=== PATIENT | male | born 1945 | race Caucasian/White ===

== ENCOUNTER 2016-10-22 20:16 | Emergency (ER) | payer MEDICARE ==
[~2016-10-22 20:16] MED LIST: ANDROGEL1%; ANTIVERT 25MG25 MG PO; ASPIRIN 81M81 MG/TA2 PO; FISH OIL1000 MG; GLUCOSAMINE & C1 CA1; LEVAQUIN 750MG750 M1 PO; LOPRESSOR 225 MG/TAB PO; MULTIPLE VITAMI1 CAP PO; NAPROSYN500 MG; NEURONTIN100 MG/CAP PO; OSTEO-BI-FLEX 21 TAB; TOPROL XL 25MG25 MG PO; VITAMIN B COMPL1 TA1; ZOCOR 40MG40 MG PO; ZOCOR5 MG PO
[2016-10-22 20:18] VITALS: TEMP 97.9
[2016-10-22 20:50] LABS: BASO % 0.4 % (0.0-2.0); EOS # 0.3 (0.0-0.7); EOS % 3.8 % (0-4.0); GRAN # 4.3 (1.4-6.5); GRAN % 50.8 % (42.2-75.2); HEMATOCRIT 44.6 % (42.0-52.0); LYMPH % 35.2 % (20.0-51.0); MEAN CELL VOLUME 91 fl (80.0-100.0); MEAN CORPUSCULAR HEMOGLOBIN 33 pg (27.0-31.0); MEAN CORPUSCULAR HGB CONC 36 g/dl (33.0-37.0); MEAN PLATELET VOLUME 10.6 fl (7.4-10.4); MONO # 0.8 (0.1-0.6); MONO % 9.4 % (1.7-9.3); PLATELET COUNT 237 K/mm3 (130-400); RED BLOOD COUNT 4.93 M/mm3 (4.20-5.60); WHITE BLOOD COUNT 8.4 K/mm3 (4.8-10.8)
[2016-10-22 21:01] LABS: ADJUSTED CALCIUM 8.7 mg/dL (8.4-10.2); ALANINE AMINOTRANSFERASE 45 U/L (21-72); ALBUMIN 4.6 gm/dL (3.5-5.0); ALKALINE PHOSPHATASE 60 U/L (50-136); ANION GAP 12 mmol/L (7-16); BILIRUBIN,TOTAL 0.9 mg/dL (0.0-1.0); BLOOD UREA NITROGEN 21 mg/dL (9-20); CALCIUM 9.2 mg/dL (8.4-10.2); CARBON DIOXIDE 26 mmol/L (22-30); CHLORIDE 102 mmol/L (98-107); CREATININE, serum 1.04 mg/dL (0.66-1.25); GLUCOSE 145 mg/dL (74-106); POTASSIUM 3.7 mmol/L (3.4-5.0); SODIUM 141 mmol/L (137-145); TOTAL PROTEIN 7.7 gm/dL (6.4-8.2)
[2016-10-22 21:14] LABS: TROPONIN-I < 0.012 ng/mL (0.000-0.034)
[2016-10-22 22:58] VITALS: BP 110/76; PULSE 74
== END 2016-10-22 23:03 | disposition home or self-care (01) ==
LOC: COL.ER 20:16
PROVIDERS: Emergency Medicine
DX: I47.1 Supraventricular tachycardia (principal); E78.5 Hyperlipidemia, unspecified; Z87.891 Personal history of nicotine dependence

== ENCOUNTER 2017-04-24 09:18 | Outpatient (RCR) | payer OTHER | END 2017-06-14 10:32 | disposition home or self-care (01) | LOC: WSOH 09:18 | DX: M25.562 Pain in left knee (principal) ==

== ENCOUNTER 2017-10-29 11:41 | Emergency (ER) | payer MEDICARE ==
[~2017-10-29] VITALS: Ht 182.9 cm; Wt 86.4 kg
[2017-10-29 11:57] VITALS: BP 135/77; TEMP 98.6
[2017-10-29] MEDS ORDERED: GLUCOSAMIN 500 (14:31)
[2017-10-29 15:57] VITALS: PULSE 67
== END 2017-10-29 15:59 | disposition home or self-care (01) ==
LOC: COL.ER 11:41
DX: S09.90XA Unspecified injury of head, initial encounter (principal); S01.01XA Laceration without foreign body of scalp, initial encounter; Z23 Encounter for immunization; Z79.82 Long term (current) use of aspirin; Z79.52 Long term (current) use of systemic steroids; W10.9XXA Fall (on) (from) unspecified stairs and steps, initial encounter

== ENCOUNTER 2017-11-05 12:12 | Emergency (ER) | payer MEDICARE ==
[~2017-11-05 12:12] MED LIST changes: +GLUCOSAMIN 500
[2017-11-05 12:20] VITALS: BP 125/76; PULSE 66; TEMP 97.9
== END 2017-11-05 12:28 | disposition home or self-care (01) ==
LOC: COL.ER 12:12
DX: S01.01XD Laceration without foreign body of scalp, subsequent encounter (principal); X58.XXXD Exposure to other specified factors, subsequent encounter

== ENCOUNTER 2023-09-02 15:27 | Emergency (ER) | payer MEDICARE ==
[~2023-09-02] VITALS: Ht 180.3 cm; Wt 84.1 kg
[2023-09-02 15:32] VITALS: TEMP 97.7
[2023-09-02 17:02] LABS: BASO % 0.5 % (0.0-2.0); EOS # 0.2 K/mm3 (0.0-0.7); EOS % 2.5 % (0.0-4.0); GRAN # 5.8 K/mm3 (1.4-6.5); GRAN % 72.7 % (42.2-75.2); HEMATOCRIT 35.2 % (42.0-52.0); LYMPH # 1.1 K/mm3 (1.2-3.4); LYMPH % 13.3 % (20.0-51.0); MEAN CELL VOLUME 93 fl (80.0-100.0); MEAN CORPUSCULAR HEMOGLOBIN 29 pg (27-31); MEAN CORPUSCULAR HGB CONC 31 g/dl (33.0-37.0); MEAN PLATELET VOLUME 9.7 fl (7.4-10.4); MONO # 0.8 K/mm3 (0.1-0.6); MONO % 10.6 % (1.7-9.3); PLATELET COUNT 234 K/mm3 (130-400); RED BLOOD COUNT 3.79 M/mm3 (4.20-5.60); REDCELL DISTRIBUTION WIDTH-CV 20.2 % (11.5-14.5)
[2023-09-02 17:07] LABS: PH 5.5 (5.0-8.5); URINE APPEARANCE CLEAR (CLEAR/HAZY); URINE BLOOD 3+ (NEGATIVE); URINE COLOR Dark Yellow (YELLOW); URINE GLUCOSE NEGATIVE (NEGATIVE); URINE KETONE TRACE (NEGATIVE); URINE NITRATE NEGATIVE (NEGATIVE); URINE PROTEIN(semi-quant) 1+ (NEGATIVE); URINE UROBILINOGEN 0.2 E.U/dL (0.2-1.0)
[2023-09-02 17:16] LABS: COLLECTION METHOD CLEAN CATCH
[2023-09-02 17:22] LABS: BILIRUBIN,TOTAL 0.3 mg/dL (0.2-1.2); CALCIUM 8.9 mg/dL (8.4-10.2); CREATININE, serum 1.1 mg/dL (0.72-1.25); POTASSIUM 4.1 mEq/L (3.5-4.5); TOTAL PROTEIN 7.6 g/dl (6.2-8.1)
[2023-09-02] MEDS ORDERED: CEFTIN500 MG PO (17:49)
[2023-09-02] MEDS ORDERED: cefTRIAXone 1 G in Water For Injection,Sterile 10 ML IV ONE (18:00)
[2023-09-02 18:10] VITALS: BP 133/90; PULSE 66
== END 2023-09-02 18:15 | disposition home or self-care (01) ==
LOC: COL.ER 15:27
PROVIDERS: Physician Assistant
DX: T83.511A Infection and inflammatory reaction due to indwelling urethral catheter, initial encounter (principal)
CPT/HCPCS: J0696

== ENCOUNTER 2023-09-04 18:11 | Emergency (ER) | payer MEDICARE ==
[~2023-09-04] VITALS: Ht 180.3 cm; Wt 84.1 kg
[~2023-09-04 18:11] MED LIST changes: +CEFTIN500 MG PO
[2023-09-04 19:06] VITALS: BP 143/80; PULSE 80; TEMP 97.7
== END 2023-09-04 19:07 | disposition home or self-care (01) ==
LOC: COL.ER 18:11
DX: T83.091A Other mechanical complication of indwelling urethral catheter, initial encounter (principal)

== ENCOUNTER → 2023-09-26 | Outpatient (CLI) | payer MEDICARE ==
[2023-09-26] VITALS (11 sets, daily range): BP systolic 130–143; BP diastolic 73–101; PULSE 60–72; TEMP 97.7
[~2023-09-26] VITALS: Ht 180.3 cm; Wt 80.7 kg
[~2023-09-26] MED LIST changes: -ANDROGEL1%; +ANDROGEL1% TOP; +LIPITOR 40MG TA40 MG PO; +Midazolam 2 MG/2 ML VIAL IV SCH; -NAPROSYN500 MG; +NAPROSYN500 MG PO; +VITAMIN B COMPL1 T16 PO; -VITAMIN B COMPL1 TA1; +XALATAN EYE DROPS OU; +fentaNYL 50 MCG/ML 2 ML VIAL IV SCH
--- NOTE | 2023-09-26 10:50 | NUR ---
Pt to ct per wheelchair. Pt placed in prone position on ct table. Monitors and O2 applied.
--- NOTE | 2023-09-26 10:58 | NUR ---
Dr Mitchell into room and talks with pt. Pt verbalized understanding.
--- NOTE | 2023-09-26 11:10 | NUR ---
Specimens obtained and placed in formalin by Dr Mitchell. Specimen labeled.
--- NOTE | 2023-09-26 11:55 | NUR ---
Discharge instructions gone over with pt. Pt verbalized understanding of instructions. Copy given to pt.
== END ==
LOC: COL.RAD 08:52
DX: R91.8 Other nonspecific abnormal finding of lung field (principal); E27.9 Disorder of adrenal gland, unspecified
CPT/HCPCS: J2250; J3010

== ENCOUNTER 2023-11-15 17:59 | Emergency (ER) | payer MEDICARE ==
[~2023-11-15] VITALS: Ht 180.3 cm; Wt 81.8 kg
[~2023-11-15 17:59] MED LIST changes: -Midazolam 2 MG/2 ML VIAL IV SCH; -fentaNYL 50 MCG/ML 2 ML VIAL IV SCH
[2023-11-15 18:05] VITALS: TEMP 97.5
[2023-11-15 22:03] VITALS: BP 148/80; PULSE 64
== END 2023-11-15 22:03 | disposition home or self-care (01) ==
LOC: COL.ER 17:59
DX: T83.098A Other mechanical complication of other urinary catheter, initial encounter (principal)
CPT/HCPCS: 31860; A4314

== ENCOUNTER 2023-11-16 13:18 | Emergency (ER) | payer MEDICARE ==
[~2023-11-16] VITALS: Ht 180.3 cm; Wt 83.6 kg
[2023-11-16 13:25] VITALS: TEMP 97.9
[2023-11-16 14:17] VITALS: BP 140/78; PULSE 68
== END 2023-11-16 14:17 | disposition home or self-care (01) ==
LOC: COL.ER 13:18
DX: T83.098A Other mechanical complication of other urinary catheter, initial encounter (principal)

== ENCOUNTER 2023-11-17 15:33 | Emergency (ER) | payer MEDICARE ==
[~2023-11-17] VITALS: Ht 180.3 cm; Wt 84.1 kg
[2023-11-17 15:37] VITALS: TEMP 98
[2023-11-17 16:44] LABS: MEAN CELL VOLUME 88 fl (80.0-100.0); MEAN CORPUSCULAR HGB CONC 31 g/dl (33.0-37.0); MEAN PLATELET VOLUME 9.2 fl (7.4-10.4); PLATELET COUNT 205 K/mm3 (130-400); RED BLOOD COUNT 3.23 M/mm3 (4.20-5.60); REDCELL DISTRIBUTION WIDTH-CV 17.2 % (11.5-14.5)
[2023-11-17 16:47] LABS: HEMATOCRIT 28.3 % (42.0-52.0); HEMOGLOBIN 8.7 g/dl (13.5-18.0); MEAN CORPUSCULAR HEMOGLOBIN 27 pg (27-31)
[2023-11-17 17:01] LABS: ALBUMIN 3.1 g/dL (3.4-4.8); BILIRUBIN,TOTAL 0.5 mg/dL (0.2-1.2); CREATININE, serum 0.84 mg/dL (0.72-1.25); POTASSIUM 3.7 mEq/L (3.5-4.5); TOTAL PROTEIN 6.1 g/dl (6.2-8.1)
[2023-11-17 17:13] LABS: ANISOCYTOSIS 1+; HYPOCHROMIA 1+; LYMPHOCYTE 35 % (20.0-51.0); NEUTROPHILS 53 % (42.0-75.2); PLATELET ESTIMATE NORMAL (NORMAL)
[2023-11-17 17:22] LABS: COLLECTION METHOD CATHETER
[2023-11-17 17:34] LABS: PH 6.5 (5.0-8.5); URINE APPEARANCE CLOUDY (CLEAR/HAZY); URINE BLOOD 3+ (NEGATIVE); URINE COLOR Dark Yellow (YELLOW); URINE GLUCOSE NEGATIVE (NEGATIVE); URINE KETONE NEGATIVE (NEGATIVE); URINE NITRATE NEGATIVE (NEGATIVE); URINE PROTEIN(semi-quant) 2+ (NEGATIVE)
[2023-11-17 17:57] LABS: SQUAMOUS EPITHELIAL 0-2 /hpf (0-10); URINE RBC >50 /hpf (0-2); URINE WBC >50 /hpf (0-2)
[2023-11-17 19:24] VITALS: BP 120/60; PULSE 76
== END 2023-11-17 19:24 | disposition home or self-care (01) ==
LOC: COL.ER 15:33
PROVIDERS: Family Medicine
DX: R41.82 Altered mental status, unspecified (principal); C43.9 Malignant melanoma of skin, unspecified; C79.31 Secondary malignant neoplasm of brain; Z85.118 Personal history of other malignant neoplasm of bronchus and lung; Z85.858 Personal history of malignant neoplasm of other endocrine glands
CPT/HCPCS: 31860; A4314

== ENCOUNTER 2023-11-21 03:15 | Emergency (ER) | payer MEDICARE ==
[~2023-11-21] VITALS: Ht 180.3 cm; Wt 84.1 kg
[2023-11-21 03:20] VITALS: BP 110/62; PULSE 94; TEMP 98.1
[2023-11-21 03:49] LABS: COLLECTION METHOD CATHETER
[2023-11-21 03:58] LABS: URINE APPEARANCE CLEAR (CLEAR/HAZY); URINE BLOOD 1+ (NEGATIVE); URINE COLOR YELLOW (YELLOW); URINE GLUCOSE NEGATIVE (NEGATIVE); URINE KETONE NEGATIVE (NEGATIVE); URINE NITRATE POSITIVE (NEGATIVE); URINE PROTEIN(semi-quant) 1+ (NEGATIVE); URINE UROBILINOGEN 0.2 E.U/dL (0.2-1.0)
[2023-11-21] MEDS ORDERED: BACTRIM DS 8001 TAB PO (04:05)
[2023-11-21] MEDS ORDERED: Sulfamethoxazole/Trimethoprim 800-160 MG TAB PO ONE (04:15)
== END 2023-11-21 04:46 | disposition home or self-care (01) ==
LOC: COL.ER 03:15
PROVIDERS: Emergency Medicine
DX: N39.0 Urinary tract infection, site not specified (principal); T83.091A Other mechanical complication of indwelling urethral catheter, initial encounter; Z88.1 Allergy status to other antibiotic agents

== ENCOUNTER 2023-11-30 13:44 | Emergency (ER) | payer MEDICARE ==
[~2023-11-30] VITALS: Ht 180.3 cm; Wt 83.6 kg
[~2023-11-30 13:44] MED LIST changes: +BACTRIM DS 8001 TAB PO
[2023-11-30 14:30] VITALS: TEMP 97.9
[2023-11-30 16:03] VITALS: BP 133/73; PULSE 70
== END 2023-11-30 15:55 | disposition home or self-care (01) ==
LOC: COL.ER 13:44
DX: T83.091A Other mechanical complication of indwelling urethral catheter, initial encounter (principal); Z85.841 Personal history of malignant neoplasm of brain; Z87.440 Personal history of urinary (tract) infections

== ENCOUNTER 2023-12-11 05:42 | Day surgery (SDC) | payer MEDICARE ==
[~2023-12-11] VITALS: Ht 180.3 cm; Wt 81.0 kg
[2023-12-11] VITALS (13 sets, daily range): BP systolic 102–130; BP diastolic 57–79; PULSE 52–76; TEMP 96.1–97.9
[~2023-12-11 05:42] MED LIST changes: +LR 1,000 ML IV SCH
[2023-12-11] MEDS ORDERED: TESTOST (06:21)
[2023-12-11 06:37] LABS: BASO # 0.1 K/mm3 (0.0-0.2); BASO % 1.1 % (0.0-2.0); EOS # 0.3 K/mm3 (0.0-0.7); EOS % 7.5 % (0.0-4.0); GRAN # 2.2 K/mm3 (1.4-6.5); GRAN % 48.8 % (42.2-75.2); HEMOGLOBIN 10.6 g/dl (13.5-18.0); LYMPH # 1.3 K/mm3 (1.2-3.4); LYMPH % 29.5 % (20.0-51.0); MEAN CELL VOLUME 82 fl (80.0-100.0); MEAN CORPUSCULAR HEMOGLOBIN 25 pg (27-31); MEAN CORPUSCULAR HGB CONC 31 g/dl (33.0-37.0); MEAN PLATELET VOLUME 8.4 fl (7.4-10.4); MONO # 0.6 K/mm3 (0.1-0.6); MONO % 12.7 % (1.7-9.3); PLATELET COUNT 188 K/mm3 (130-400); REDCELL DISTRIBUTION WIDTH-CV 16.7 % (11.5-14.5)
[2023-12-11 06:41] LABS: HEMATOCRIT 34.6 % (42.0-52.0)
[2023-12-11 06:54] LABS: CALCIUM 9.4 mg/dL (8.4-10.2); CREATININE, serum 0.85 mg/dL (0.72-1.25); POTASSIUM 4.2 mEq/L (3.5-4.5)
[2023-12-11] MEDS ORDERED: dexAMETHasone 10 MG/ML VIAL ONE (07:01)
[2023-12-11] MEDS ORDERED: Lidocaine PF 2% (20 MG/ML) 5 ML VIAL ONE (07:01)
[2023-12-11] MEDS ORDERED: Ondansetron 4 MG/2 ML VIAL ONE (07:01)
[2023-12-11] MEDS ORDERED: TYLENOL 325MG325 MG PO (07:03)
[2023-12-11] MEDS ORDERED: COLACE 100100 MG/CAP PO (07:05)
[2023-12-11] MEDS ORDERED: IRON TABLETS325 MG PO (07:06)
[2023-12-11] MEDS ORDERED: KEPPRA 500MG500 MG PO (07:09)
[2023-12-11] MEDS ORDERED: MAG-OX 400400 MG/TAB PO (07:10)
[2023-12-11] MEDS ORDERED: MELATONIN5 M1 PO (07:11)
[2023-12-11] MEDS ORDERED: fentaNYL 50 MCG/ML 2 ML VIAL ONE (07:25)
[2023-12-11] MEDS ORDERED: Midazolam 2 MG/2 ML VIAL ONE (07:28)
--- NOTE | 2023-12-11 07:39 | NUR ---
PATIENT ADMITTED TO ROOM 8 WITH USE OF WHEELED WALKER. VOICES UNDERSTANDING OF SURGERY AND CONSENT SIGNED. 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 DAUGHTER WITH THE PATIENT.
[2023-12-11] MEDS ORDERED: 1/2 NS & 20 mEq KCl 1,000 ML IV SCH (08:00)
[2023-12-11] MEDS ORDERED: Hyoscyamine 0.125 MG Sublingual TAB SL PRN (08:00)
[2023-12-11] MEDS ORDERED: Morphine 4 MG/ML VIAL IV PRN (08:00)
[2023-12-11] MEDS ORDERED: Magnes Hydrox (MOM) 80 MG/ML 30 ML CUP PO PRN (08:00)
[2023-12-11] MEDS ORDERED: Ondansetron 4 MG/2 ML VIAL IV PRN ×2 (08:00→09:00)
[2023-12-11] MEDS ORDERED: NS Irrig Soln 3000 ML SOLN IR PRN (08:00)
[2023-12-11] MEDS ORDERED: Acetaminophen 325 MG TAB PO PRN (08:00)
[2023-12-11] MEDS ORDERED: hydrALAZINE 20 MG/ML 1 ML VIAL IV PRN (09:00)
[2023-12-11] MEDS ORDERED: Docusate Sodium 100 MG CAP PO SCH ×2 (09:00)
[2023-12-11] MEDS ORDERED: HYDROmorphone 1 MG/1 ML SYRINGE [PACU/SDC ONLY] IV PRN (09:00)
[2023-12-11] MEDS ORDERED: fentaNYL 50 MCG/ML 1 ML SYRINGE/VIAL [PACU/SDC ONLY] IV PRN (09:00)
--- NOTE | 2023-12-11 10:15 | NUR ---
Pt recently arrived to the floor from [facility]. He is drowsy, but does wake easily when spoken to. Unable to get a temperature at this time, daughter reports people always have a hard time getting a temperature on him and baseline is around 97 degrees. Pt has several blankets on him, does feel a little cool to touch, daughter states that he feels normal to her. Sol catheter to dependent drainage with CBI at slow rate. Output is pink tinged, no clots seen. IVF infusing to left wrist. Oriented daughter to the room and educated on plan of care. Letting pt rest at this time
[2023-12-11] MEDS ORDERED: levETIRAcetam 500 MG TAB PO SCH (10:30)
--- NOTE | 2023-12-11 11:30 | NUR ---
Pt continues to do okay. No complaints of pain at this time. Discussed him reporting if he ever gets the urge to void. CBI continues to run at slow rate, output remains pink tinged, no clots seen. Pt denies any needs at this time
--- NOTE | 2023-12-11 15:54 | NUR ---
Pt doing well, no complaints of pain. He did state occasionally he has the feeling as if he needs to void, but that it goes away. Explained bladder spasms to him. I did assist pt to standing at the side of the bed. Pt did well with only slight complaints of discomfort. Pt tolering liquids and he did have some crackers and peanut butter. Pt advanced to general diet and he stated he understands how to order. Pts daughter planning on leaving soon, call light within reach
[2023-12-11] MEDS ORDERED: Melatonin 3 MG TAB PO SCH (21:00)
[2023-12-11] MEDS ORDERED: Atorvastatin 40 MG TAB PO SCH (21:00)
[2023-12-11] MEDS ORDERED: Latanoprost 0.005% Ophth Soln 2.5 ML BOTTLE OP SCH (21:00)
--- NOTE | 2023-12-11 22:06 | NUR ---
PATIENT ALERT AND ORIENTED X4. VSS. PATIENT HERE FOR TURP. CBI RUNNING SLOW, PINK OUTPUT WITH SCATTERED CLOTS. PATIENT GIVEN PM MEDS WITH THE ADDITION OF LEVSIN. PATIENT HAVING BLADDER SPASMS. IV TO LEFT WRIST INT AND FLUSHES WELL. NO FURTHER NEEDS. CALL LIGHT IN REACH. BED ALARM ON.
[2023-12-12] VITALS (9 sets, daily range): BP systolic 101–143; BP diastolic 61–77; PULSE 67–71; TEMP 97.1–97.8
--- NOTE | 2023-12-12 07:54 | NUR ---
PT doing well this morning. He is partially confused at this time, but he does realize it. Pt stated that when he got up, he thought he was at home and set off the bd alarm. Night nurse stated that pt did not sleep hardly at all, pt reports not remembering. Pt denies having any pain at this time. He does not recall me taking care of him yesterday. Dr Lal has been into see pt, new orders wrote. I did prime and pull kate catheter. I explained the process to the pt. Pt is back to sitting up in his chair, chair alarm on. I did explain that he will need to use the urinal each time he voids and to notify nursing. Breakfast has been ordered.
[2023-12-12] MEDS ORDERED: Influenza Virus Vaccine, Hi-Dose Triv '24-25 (65 YR+) 0.5 ML SYRINGE IM SCH (09:00)
--- NOTE | 2023-12-12 09:27 | NUR ---
Pt doing okay, still has not had the urge to void. Encouraged him to drink plenty of water. Pt reports that he hardly drinks any water. Pt does have a pitcher of water, encourage him to try and have it finished by around lunch time. Pt continues to sit up in the chair, chair alarm on
--- NOTE | 2023-12-12 10:52 | NUR ---
Pt reports that he still does not have the urge to void. I did recommend him at least trying but he refused. Encouraged him to try and that I could assist him to the restroom. Pt just stated, "no, not until later." Pt continues to sit up in the chair, chair alarm on
--- NOTE | 2023-12-12 12:09 | NUR ---
Pt continues to be somewhat confused and is hullicating, he states he can sees trains out his window and tries to convince me that there are actual trains. Pt has been unable to void up to this point, states he does not have the urge. I did have him ambulate the halls and try again which he was unsuccessful. Pt has been setting off chair alarm and bed alarm often. Pt up walking the halls again now with PCT
--- NOTE | 2023-12-12 12:44 | NUR ---
SW met with patient to complete initial assessment for discharge planning. Patient confirmed that he lives in [place] with his step- granddaughter Fabiola. Patient lists his daughter Kailey Levine ([phone]) as his contact and DPOA. He also lists his step daughter Sandra Andrade ([phone]) as contact. Patient sees Dr. Lizy Mason as his PCP and uses [facility] without difficulty. Patient has a rollator walker and shower chair for DME. Patient states that he does not drive any more due to having cancer in his brain and making a deal with his family that he won't drive. Family drives him to appointments and will be picking him up at discharge. Patient reports to have meals on wheels and is active with [facility]. Clinical information will be sent to [facility] . Discharge plan: Home with [facility]
--- NOTE | 2023-12-12 13:32 | NUR ---
Initial visit; Patient thanked [employer] for looking in on him and listening. Patient has come through a lot and has had a lot of prayers which he know have been working. He is a strong believer in God and has had several visits from his [employer] and [employer]. He thanked [employer] for coming to visit and thanked her for what she does for others. [employer] offered God's blessings.
--- NOTE | 2023-12-12 14:34 | NUR ---
Pt has only been able to void very tiny amount of light red output. I have been bladder scanning which is up to around 500ml at this time. Pt reports he just doesn't have the urge to void. I did update Dr Lal regarding this. Pt continues to sit up in the chair, no complaints of pain
--- NOTE | 2023-12-12 15:16 | NUR ---
Pt did ambulate and then void a small amount, around 30cc. I gave report to RIN Silvestre and updated on plan of care for the patient
--- NOTE | 2023-12-12 18:00 | NUR ---
Patient has only been able to have minimal voiding. Bladder scan showed greater than 675 ml in bladder. Per Dr. Izquierdo instructions a 18 f coude was placed and patient was able to be discharged. Discharge packed reviewed with patient and family and all questions and concerns addressed at this time. Escorted out to the ER and left the facilty with daughter. Alert and oriented and in no distress upon discharge.
== END 2023-12-12 19:00 | disposition home or self-care (01) ==
LOC: SDCO 05:42 → SURG 10:00 → SDCO 12-12 19:00
PROVIDERS: Urology
DX: N40.1 Benign prostatic hyperplasia with lower urinary tract symptoms (principal); R39.12 Poor urinary stream; R35.1 Nocturia; R39.14 Feeling of incomplete bladder emptying; R33.8 Other retention of urine; R31.0 Gross hematuria; I10 Essential (primary) hypertension; Z79.899 Other long term (current) drug therapy; Z85.118 Personal history of other malignant neoplasm of bronchus and lung; Z85.858 Personal history of malignant neoplasm of other endocrine glands; Z85.841 Personal history of malignant neoplasm of brain; Z85.828 Personal history of other malignant neoplasm of skin; Z87.891 Personal history of nicotine dependence
CPT/HCPCS: OP; J1100; J2250; J2405; J2704; J3010; J7120